=== PATIENT | female | born 1995 | race African-American/Black ===

== ENCOUNTER 2018-03-08 19:29 | Emergency (ER) | payer OTHER ==
[2018-03-08 19:51] VITALS: BP 129/63
[2018-03-08] MEDS ORDERED: DIPHENHYDRAMINE HCL 25 MG CAPSULE PO ONE (20:18)
--- NOTE | 2018-03-08 20:21 | ER Document Report ---
HPI - HPI Pain Level: 2 Notes: Patient is an otherwise healthy 22-year-old female who presents with chief complaint of possible insect bite above her left eye. Patient reports this occurred last night. Patient tried taking hydrocortisone cream but has not done anything else for the bite. Patient concerned as she reports she is 10 weeks and is unsure what is safe for her to take. Patient denies any difficulty breathing or shortness of breath. patient denies any known allergies to anything Past Medical History - General Information source: Patient - Social History Smoking Status: Never Smoker Frequency of alcohol use: None Drug Abuse: None Family History: Reviewed & Not Pertinent - Medical History Medical History: Negative Surgical Hx: Negative - Immunizations Immunizations up to date: Yes Vertical Provider Document - CONSTITUTIONAL Notes: PHYSICAL EXAMINATION: GENERAL: Well-appearing, well-nourished and in no acute distress. HEAD: Atraumatic, normocephalic. EYES: Pupils equal round extraocular movements intact, conjunctiva are normal. ENT: Nares patent NECK: Normal range of motion LUNGS: No respiratory distress Musculoskeletal: Normal range of motion NEUROLOGICAL: Normal speech, normal gait. PSYCH: Normal mood, normal affect. SKIN: Warm, Dry, normal turgor, no rashes or lesions noted. Mild erythema consistent with insect bite noted just above patient's left eyebrow, does not appear to be infected. - INFECTION CONTROL TRAVEL OUTSIDE OF THE [place] IN LAST 30 DAYS: No Course - Re-evaluation Re-evalutation: 03/08/18 20:21 We will treat patient with Benadryl and discharged home. - Vital Signs Vital signs: Temp Pulse Resp BP Pulse Ox 98.7 F 81 14 129/63 H 100 03/08/18 19:50 03/08/18 19:50 03/08/18 19:50 03/08/18 19:50 03/08/18 19:50 Discharge - Discharge Clinical Impression: Insect bite Qualifiers: Encounter type: initial encounter Qualified Code(s): W57.XXXA - Bitten or stung by nonvenomous insect and other nonvenomous arthropods, initial encounter Additional Instructions: Insect Bites You have been bitten by an insect. These bites can cause two types of swelling: an initial swelling due to insect saliva or injected poison, and a late reaction due to your body's allergic reaction. This initial local reaction may be uncomfortable but is not dangerous. Often there's an itchy "hive" at the bite location. This is treated with antihistamines, cold compresses, and resting the affected body part. The later reaction often develops about the second day. The entire area becomes very swollen, red, itchy, and tender. This is an allergic reaction. Your body is attacking the leftover insect saliva or venom. This type of allergy is unpleasant, but not dangerous. We treat this swelling with cortisone -type medicine. Sometimes we use antibiotics if we're worried about infection. Antihistamines help with the itch. If you develop a fever, chills, a red streak, or swollen glands in the area of the bite, infection may be starting. Return at once. The insect bite does not appear to be infected. Continue using the hydrocortisone cream to the area. You may also take Benadryl 1-2 tablets every 6 hours. This is safe during . Please return to the emergency department if you develop fever, worsening swelling, drainage or any other symptom that is concerning to you.
== END 2018-03-08 20:40 | disposition home or self-care (01) ==
LOC: ER 19:29
DX: O26.91 Pregnancy related conditions, unspecified, first trimester (principal); S00.86XA Insect bite (nonvenomous) of other part of head, initial encounter; W57.XXXA Bitten or stung by nonvenomous insect and other nonvenomous arthropods, initial encounter; Z3A.10 10 weeks gestation of pregnancy
CPT/HCPCS: 99281